=== PATIENT | female | born 1995 | race Caucasian/White ===

== ENCOUNTER 2016-12-29 05:31 | Emergency (ER) | payer SELFPAY ==
[2016-12-29 06:08] LABS: Bilirubin Negative (Negative); Blood, Urine Large (Negative); Clarity Cloudy (Clear); Glucose, Urine (Dipstick) Negative (Negative); Leukocyte Negative (Negative); Nitrite Negative (Negative); Protein, Urine (Dipstick) 30 mg/dL (Neg-Trace); pH, Urine 5.5 (5.0-9.0)
[2016-12-29] MEDS ORDERED: Ibuprofen 800 MG TAB ONE (06:10)
[2016-12-29] MEDS ORDERED: HYDROcodone/Acetaminophen 10/325 mg Tablet ONE (06:10)
[2016-12-29 06:11] LABS: Pregnancy Test - Urine (BHCG) Negative (Negative); Pregu Control Background? CLEAR/WHITE (CLR/WHITE); Pregu Control Bar Appear? YES (CONTROL BAR); Specific Gravity 1.024 (1.002-1.036); Specific Gravity, Urine 1.024 (1.005-1.030)
[2016-12-29 06:16] LABS: Bacteria/HPF 1+ HPF (None Seen); RBC/HPF GREATER THAN 50-TNTC HPF (0-3); WBC/HPF 0-3 HPF (0-3)
[2016-12-29] MEDS ORDERED: Ondansetron ODT 4 MG TAB ONE (06:22)
[2016-12-30 22:56] LABS: Chlamydia by PCR Not Detected (NotDetected); GC by PCR Not Detected (NotDetected)
== END 2016-12-29 06:42 | disposition home or self-care (01) ==
LOC: BURERS 05:31
DX: N83.202 Unspecified ovarian cyst, left side (principal); F32.9 Major depressive disorder, single episode, unspecified; F17.210 Nicotine dependence, cigarettes, uncomplicated
CPT/HCPCS: 81003; 81015; 81025; 87480; 87491; 87510; 87591; 87660; 99284; Q0162

== ENCOUNTER 2017-07-01 14:30 | Emergency (ER) | payer SELFPAY ==
[2017-07-01] MEDS ORDERED: AMOXicillin 250 MG CAP ONE (14:45)
== END 2017-07-01 14:48 | disposition home or self-care (01) ==
LOC: BURERS 14:30
DX: H66.91 Otitis media, unspecified, right ear (principal); F32.9 Major depressive disorder, single episode, unspecified; F17.210 Nicotine dependence, cigarettes, uncomplicated
CPT/HCPCS: 99282; J0290

== ENCOUNTER 2017-09-28 18:23 | Emergency (ER) | payer SELFPAY ==
[2017-09-28] MEDS ORDERED: AMOXicillin 250 MG CAP ONE (18:40)
== END 2017-09-28 18:45 | disposition home or self-care (01) ==
LOC: BURERS 18:23
DX: K04.7 Periapical abscess without sinus (principal); F17.210 Nicotine dependence, cigarettes, uncomplicated; F32.9 Major depressive disorder, single episode, unspecified; Z71.6 Tobacco abuse counseling
CPT/HCPCS: 99406

== ENCOUNTER 2018-01-25 10:48 | Emergency (ER) | payer SELFPAY ==
[2018-01-25] MEDS ORDERED: Bupivacaine 0.5% 10 ML VIAL ONE (11:19)
[2018-01-25] MEDS ORDERED: Acetaminophen/Codeine 30-300mg Tablet ONE (11:30)
== END 2018-01-25 11:40 | disposition home or self-care (01) ==
LOC: BURERS 10:48
DX: K04.7 Periapical abscess without sinus (principal); F17.210 Nicotine dependence, cigarettes, uncomplicated; F32.9 Major depressive disorder, single episode, unspecified
CPT/HCPCS: 64400; J3490

== ENCOUNTER 2019-11-09 12:11 | Emergency (ER) | payer SELFPAY ==
[2019-11-09] MEDS ORDERED: AMOXicillin 250 MG CAP ONE (12:30)
[2019-11-09] MEDS ORDERED: Ondansetron ODT 4 MG TAB ONE (12:30)
[2019-11-09] MEDS ORDERED: HYDROcodone/Acetaminophen 10/325 mg Tablet ONE (12:30)
== END 2019-11-09 12:42 | disposition home or self-care (01) ==
LOC: BURERS 12:11
DX: K02.9 Dental caries, unspecified (principal); F32.9 Major depressive disorder, single episode, unspecified; F17.210 Nicotine dependence, cigarettes, uncomplicated
CPT/HCPCS: 99282; Q0162

== ENCOUNTER 2020-05-17 22:39 | Emergency (ER) | payer SELFPAY ==
[2020-05-18 21:52] LABS: SARS-CoV-2 PCR by NAA Not Detected (NotDetected)
== END 2020-05-17 23:23 | disposition home or self-care (01) ==
LOC: BURERS 22:39
DX: B34.9 Viral infection, unspecified (principal); Z20.822 Contact with and (suspected) exposure to COVID-19; F17.210 Nicotine dependence, cigarettes, uncomplicated
CPT/HCPCS: 87635; 99284; U0003; U0005

== ENCOUNTER 2021-04-05 12:15 | Emergency (ER) | payer SELFPAY ==
[2021-04-05] MEDS ORDERED: Penicillin V Potassium 250 MG TAB ONE (12:56)
[2021-04-05] MEDS ORDERED: HYDROcodone/Acetaminophen 5/325 mg Tablet ONE (12:56)
== END 2021-04-05 12:57 | disposition home or self-care (01) ==
LOC: BURERS 12:15
DX: K04.7 Periapical abscess without sinus (principal); K02.9 Dental caries, unspecified; N83.209 Unspecified ovarian cyst, unspecified side
CPT/HCPCS: 99283

== ENCOUNTER 2023-12-03 14:13 | Emergency (ER) | payer SELFPAY ==
[2023-12-03] MEDS ORDERED: AMOXicillin 250 MG CAP ONE (15:14)
[2023-12-03] MEDS ORDERED: predniSONE 20 MG TAB ONE (15:19)
== END 2023-12-03 15:19 | disposition home or self-care (01) ==
LOC: BURERS 14:13
DX: H66.91 Otitis media, unspecified, right ear (principal); H92.01 Otalgia, right ear; F17.290 Nicotine dependence, other tobacco product, uncomplicated
CPT/HCPCS: 99282; J7512